=== PATIENT | male | born 1940 | race Caucasian/White ===

== ENCOUNTER → 2020-08-30 | Outpatient (CLI) | payer MEDICARE ==
[~2020-08-30] MED LIST: ASPI325; ASPI325 PO; Aspir 8181 MG PO; CARV25 PO; CARV6.25; CLOP75; FENTANYL PATCH; FURO20 PO; HYDACE10B PO; HYDACE5325; LISI20; LISI5 PO; OMEP20ER; PRAV20 PO
== END ==
LOC: LAB SHORT 17:47 → LAB 17:47
DX: L08.9 Local infection of the skin and subcutaneous tissue, unspecified (principal); Z48.02 Encounter for removal of sutures
CPT/HCPCS: 87070; 87205

== ENCOUNTER 2022-12-03 07:06 | Day surgery (SDC) | payer MEDICARE ==
[~2022-12-03] VITALS: Ht 162.6 cm; Wt 54.0 kg
[~2022-12-03 07:06] MED LIST changes: +DULO60 PO; +ELIQUIS5 M2 PO; +FURO40 PO; +NITR.4SL
[2022-12-03] MEDS ORDERED: PANTOPRAZOLE SO40 M2 PO (07:30)
[2022-12-03] MEDS ORDERED: HYDROCODONE-AC1 EAC7 PO (07:31)
--- NOTE | 2022-12-03 07:39 | NUR ---
12/03/22 0739 Pauly Tom AT 0730 PLEDGET AT 0775
[2022-12-03 08:46] VITALS: BP 115/73
== END 2022-12-03 09:02 | disposition home or self-care (01) ==
LOC: ORSCSDS 07:06
PROVIDERS: Student in an Organized Health Care Education/Training Program
PROC: 08RJ3JZ Replacement of Right Lens with Synthetic Substitute, Percutaneous Approach (ICD-10-PCS; principal; 2022-12-03 08:30)
DX: H25.13 Age-related nuclear cataract, bilateral (principal); I10 Essential (primary) hypertension; I25.10 Atherosclerotic heart disease of native coronary artery without angina pectoris; Z95.0 Presence of cardiac pacemaker; I25.2 Old myocardial infarction; Z79.01 Long term (current) use of anticoagulants; Z79.899 Other long term (current) drug therapy
CPT/HCPCS: J2001; J2250; J3010; J7040; V2632

== ENCOUNTER 2022-12-17 07:33 | Day surgery (SDC) | payer MEDICARE ==
[~2022-12-17] VITALS: Ht 162.6 cm; Wt 49.4 kg
[~2022-12-17 07:33] MED LIST changes: +HYDROCODONE-AC1 EAC7 PO; +PANTOPRAZOLE SO40 M2 PO
--- NOTE | 2022-12-17 08:10 | NUR ---
12/17/22 0810 Brit Noav TETRACAINE TO LEFT EYE AT 0808 PLEDGET TO LEFT EYE AT 0809 BY ORD.TCR
[2022-12-17 09:13] VITALS: BP 113/69
--- NOTE | 2022-12-17 09:20 | NUR ---
12/17/22 0920 JANELLE RICO IV OUT, WNL, TOLERATED WELL. CANNULA INTACT
== END 2022-12-17 09:40 | disposition home or self-care (01) ==
LOC: ORSCSDS 07:33
PROVIDERS: Student in an Organized Health Care Education/Training Program
PROC: 08RK3JZ Replacement of Left Lens with Synthetic Substitute, Percutaneous Approach (ICD-10-PCS; principal; 2022-12-17 09:00)
DX: H25.12 Age-related nuclear cataract, left eye (principal); Z96.1 Presence of intraocular lens; K21.9 Gastro-esophageal reflux disease without esophagitis; I10 Essential (primary) hypertension; I25.2 Old myocardial infarction; I48.91 Unspecified atrial fibrillation; I25.10 Atherosclerotic heart disease of native coronary artery without angina pectoris; Z87.891 Personal history of nicotine dependence; I25.5 Ischemic cardiomyopathy; Z95.0 Presence of cardiac pacemaker; Z79.01 Long term (current) use of anticoagulants; Z79.899 Other long term (current) drug therapy
CPT/HCPCS: J2250; J7040; V2632